=== PATIENT | male | born 1960 | race Caucasian/White ===

== ENCOUNTER 2019-08-23 15:39 | Emergency (ER) | payer MEDICAID ==
[~2019-08-23] VITALS: Ht 177.8 cm; Wt 79.4 kg
[2019-08-23 16:00] VITALS: BP 117/68
--- NOTE | 2019-08-23 16:00 | NUR ---
ED Nurse Note: PT AMBULATED TO ED C/O RIGHT ELBOW X 1 DAY S/P JAMMING ELBOW ONTO WALL. rates pain 10/10. presents with no acute distress.
--- NOTE | 2019-08-23 16:28 | Emergency Room Report ---
History of Present Illness General Chief Complaint: Upper Extremity Injury Source: Patient Present Illness HPI 59-year-old male with no symptom past medical history here complaining of a 10 out of 10 right elbow pain after accidentally hitting it to the wall. Patient reports the pain has been ongoing for the past 2 days. Has not taken medication for symptom relief. Has full range of motion, reported the pain is mostly upon palpation of the area. Denies pain radiation, denies tingling numbness. Has not taken medication for symptom relief, denies all other injuries, chest pain, shortness of breath, and reports that he is not on any blood thinners. Allergies: Coded Allergies: No Known Allergies (Unverified , 08/23/19) Patient History Past Medical History: see triage record Past Surgical History: none Pertinent Family History: none Immunizations: UTD Reviewed Nursing Documentation: PMH: Agreed; PSxH: Agreed Nursing Documentation-PMH Past Medical History: No Stated History Review of Systems All Other Systems: negative except mentioned in HPI Physical Exam Vital Signs Date Time Temp Pulse Resp B/P (MAP) Pulse Ox O2 Delivery O2 Flow Rate FiO2 08/23/19 15:54 98.1 75 18 117/68 (84) 99 Room Air Sp02 EP Interpretation: reviewed, normal General Appearance: no apparent distress, alert, GCS 15, non-toxic Head: normocephalic, atraumatic Eyes: bilateral eye normal inspection, bilateral eye PERRL ENT: hearing grossly normal, normal pharynx, no angioedema, normal voice Neck: full range of motion, supple/symm/no masses Respiratory: chest non-tender, lungs clear, normal breath sounds, no wheezing, speaking full sentences Cardiovascular #1: regular rate, rhythm, no edema, no murmur Cardiovascular #2: 2+ radial (R), 2+ radial (L) Gastrointestinal: normal bowel sounds, non tender, soft, non-distended, no guarding, no rebound Rectal: deferred Genitourinary: no CVA tenderness Musculoskeletal: back normal, normal range of motion, digits/nails normal, non- tender Neurologic: alert, motor strength/tone normal, oriented x3, sensory intact, responsive, speech normal Psychiatric: judgement/insight normal, memory normal, mood/affect normal, no suicidal/homicidal ideation Skin: no rash Lymphatic: no adenopathy Procedures Splinting Splinting : Consent: Verbal Location: Right elbow Pre-Made Type: ROB wrap Pre-Proc Neuro Vasc Exam: normal Post-Proc Neuro Vasc Exam: normal Patient Tolerated: Well Complications: None Medical Decision Making PA Attestation All my diagnosis and treatment plans were reviewed ad discussed with my supervising physician Dr. Gomez Diagnostic Impression: Primary Impression: Elbow contusion ER Course 59-year-old male with no symptom past medical history here complaining of a 10 out of 10 right elbow pain after accidentally hitting it to the wall. Patient reports the pain has been ongoing for the past 2 days. Has not taken medication for symptom relief. Has full range of motion, reported the pain is mostly upon palpation of the area. Denies pain radiation, denies tingling numbness. Has not taken medication for symptom relief, denies all other injuries, chest pain, shortness of breath, and reports that he is not on any blood thinners. Ddx considered but are not limited to : Elbow sprain versus strain versus fracture versus contusion Vital signs: are WNL, pt. is afebrile H&PE are most consistent with: Right elbow contusion ORDERS: Right elbow x-ray, Motrin, Voltaren gel ED INTERVENTIONS: Rob wrap, Motrin DISCHARGE: At this time pt. is stable for d/c to home. Will provide printed patient care instructions, and any necessary prescriptions. Care plan and follow up instructions have been discussed with the patient prior to discharge. Patient to follow primary care provider, alternate between icing heating affected area, take medication as directed, if worsening symptoms return to the emergency room Other X-Ray Diagnostic Results Other X-Ray Diagnostic Results : X-Ray ordered: Right elbow # of Views/Limited Vs Complete: 3 View Indication: Pain EP Interpretation: Yes KALEN Xray: Interpretation reviewed, by supervising MD, and agrees with findings. Interpretation: no dislocation, no soft tissue swelling, no fractures Impression: No acute disease Electronically Signed by: Finn Kumar PA-C Last Vital Signs Date Time Temp Pulse Resp B/P (MAP) Pulse Ox O2 Delivery O2 Flow Rate FiO2 08/23/19 15:54 98.1 75 18 117/68 (84) 99 Room Air Disposition: HOME, SELF-CARE Condition: Stable Scripts Diclofenac Sodium (VOLTAREN) 100 Gm Gel..gram. 2 GM TP TID, #100 GM Prov: Finn Moreno 08/23/19 Ibuprofen* (MOTRIN*) 600 Mg Tablet 600 MG ORAL Q8H PRN for For Pain, #30 TAB 0 Refills Prov: Finn Moreno 08/23/19 Patient Instructions: Elbow Contusion, [id number] Additional Instructions: Take medication as directed, follow-up with your primary care provider, if worsening symptoms return to the emergency room Finn Moreno Aug 23, 2019 16:28
[2019-08-23] MEDS ORDERED: IBUPROFEN600 MG ORAL (16:29)
[2019-08-23] MEDS ORDERED: VOLTAREN100 G1 TP (16:29)
[2019-08-23 16:35] VITALS: BP 117/68
--- NOTE | 2019-08-23 16:35 | NUR ---
ER DISCHARGE NOTE: Rob wrapped right elbow. Patient is cleared to be discharged per ERMD, pt is aox4, on room air, with stable vital signs. pt was given dc and prescription instructions, pt was able to verbalize understanding, pt id band . pt is able to ambulate with steady gait. pt took all belongings.
--- NOTE | 2019-08-23 17:09 | Diagnostic Imaging Report ---
. Indications:Trauma, pain Technique: Three or 4 views of the right elbow Comparison: None Findings: No evidence of effusion. No acute fractures. No dislocations. Joint spaces are preserved. Impression: Negative
== END 2019-08-23 16:35 | disposition home or self-care (01) ==
LOC: EMR 16:25
DX: S50.01XA Contusion of right elbow, initial encounter (principal); W22.8XXA Striking against or struck by other objects, initial encounter; Y93.9 Activity, unspecified; Y92.9 Unspecified place or not applicable
CPT/HCPCS: 73080; Z7502; 99283